=== PATIENT | male | born 1960 | race Two or more races ===

== ENCOUNTER 2025-02-22 06:40 | Day surgery (SDC) | payer MEDICAID, SELFPAY ==
--- NOTE | 2025-02-21 07:00 | EKG_ITS ---
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
[2025-02-21 10:42] VITALS: BMI 27.8
[2025-02-21 11:04] LABS: Collection Type, Urine Clean Catch; Squamous Epithelial Cell,Urine 0 /hpf (0-5)
[2025-02-21 12:16] LABS: Basophils # (Auto) 0.0 Thou/mm3 (0.0-0.2); Basophils % (Auto) 1 % (0-2.5); Eosinophils # (Auto) 0.1 Thou/mm3 (0.0-0.5); Eosinophils % (Auto) 2 % (0-10); Hematocrit 44.5 % (41.0-53.0); Hemoglobin 15.0 g/dL (13.5-16.0); Immature Granulocytes Auto 0.02 Thou/mm3 (0.00-0.00); Lymphocytes # (Auto) 2.1 Thou/mm3 (1.0-4.8); Lymphocytes % (Auto) 32 % (10-50); Mean Corpuscular HGB Conc 33.7 g/dl (31.0-37.0); Mean Corpuscular Hemoglobin 27.5 pg (25.0-35.0); Mean Corpuscular Volume 82 fL (80-100); Monocytes # (Auto) 0.7 Thou/mm3 (0.0-0.8); Monocytes % (Auto) 10 % (0-12); Neutrophils # (Auto) 3.6 Thou/mm3 (1.8-7.7); Neutrophils % (Auto) 55 % (37-80); Nucleated Red Blood Cell # 0.00 Thou/mm3 (0.00-0.00); Nucleated Red Blood Cell % 0 /100 WBC (0); Platelet Count 282 Thou/mm3 (140-440); RDW Standard Deviation 42.5 fL (35.1-43.9); Red Blood Count 5.45 Miln/mm3 (4.50-5.90); White Blood Count 6.6 Thou/mm3 (3.8-10.6)
--- NOTE | 2025-02-21 12:22 | ESHP_ITS ---
RE: IVAN WARD : 1960 DATE OF ADMISSION: 02/22/2025 HISTORY OF PRESENT ILLNESS: The patient is a 64-year-old male with elevated PSA of 5.3, nocturia x2, urinary flow is fair, sometimes slow. PREVIOUS SURGERY: Bilateral vasectomy. PAST MEDICAL HISTORY: The patient's serum creatinine is 1.0. PSA is 5.3. His hemoglobin A1c is 6.0. There is no history of diabetes mellitus. No history of hypertension. SOCIAL HISTORY: The patient has 5 children. HOME MEDICATIONS: None. ALLERGIES: NONE KNOWN. PHYSICAL EXAMINATION: HEENT: Normal. NECK: Supple. LUNGS: Clear. CARDIOVASCULAR: Heart sounds are normal. ABDOMEN: Soft. The patient has a small umbilical hernia. GENITOURINARY: Phallus is normal. Testes are down in the scrotum. RECTAL: Reveals moderately enlarged smooth prostate without any hard nodules. IMPRESSION: 1. Elevated PSA. 2. Prostatism. 3. Prostatic obstruction. PLAN: Cystoscopy, transrectal prostatic ultrasound with ultrasound-guided prostatic needle biopsy. Planned procedure risks and complications have been discussed with the patient. The patient has understood them and agreed to proceed. Thank you. DT: 11:58:36 TT: 12:20:00 Ref: [id number] - TID: [id number]
[2025-02-21 12:24] LABS: Bilirubin,Urine Negative (Negative); Blood,Urine Trace (Negative); Clarity,Urine Clear (Clear/Hazy); Color,Urine Lt-Yellow (Lt Yel-Yel); Glucose, Urine Negative (Negative); Ketones,Urine Negative (Negative); Leukocyte Esterase,Urine Negative (Negative); Nitrite,Urine Negative (Negative); PH,Urine 6.0 (5.0-7.0); Protein,Urine Negative (Neg - Trace); RBC,Urine 3 /hpf (0-3); Specific Gravity,Urine 1.015 (1.001-1.035); Urobilinogen,Urine Negative mg/dL (0.0-1.0); WBC,Urine < 1 /hpf (0-5)
[2025-02-21 12:28] LABS: Alanine Aminotransferase 17 U/L (10-49); Albumin, Serum 4.2 gm/dL (3.4-4.8); Albumin/Globulin Ratio 1.9 (1.2-2.2); Alkaline Phosphatase 80 U/L (46-116); Anion Gap 10 (7-16); Aspartate Amino Transferase 18 U/L (0-34); BUN/Creatinine Ratio 14 Ratio (12-20); Bilirubin,Total 0.6 mg/dL (0.3-1.2); Blood Urea Nitrogen 14 mg/dL (9-23); Calcium 9.1 mg/dL (8.3-10.6); Calcium (Corrected) 9.1 mg/dL (8.5-10.1); Carbon Dioxide 27.3 mMol/L (20.0-31.0); Chloride 105 mMol/L (98-107); Creatinine (Component) 1.0 mg/dL (0.6-1.3); Estimated Creatinine Clearance 72.9 mL/min (>60); Globulin 2.2 gm/dL (2.3-3.5); Glucose 88 mg/dL (74-106); Osmolality,Calculated 282 (275-295); Potassium 4.2 mMol/L (3.4-5.1); Sodium 142 mMol/L (136-145); Total Protein 6.4 gm/dL (5.7-8.2); eGFR > 60 See Note
--- NOTE | 2025-02-21 14:51 | SUR.PREOP ---
Cardiac records requested from Dr [place] and waiting for them.
[2025-02-22] VITALS (7 sets, daily range): BP systolic 95–134; BP diastolic 62–85; PULSE 62–76; RESP 12–15; TEMP 36.1–36.6; O2SAT 95–99; BMI 27.5
[2025-02-22] MEDS: RINGERS LACTATED 1000 ML 1,000 ML 20 ML IV (07:20)
--- NOTE | 2025-02-22 07:25 | CHAP ---
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
--- NOTE | 2025-02-22 08:30 | XR_ITS ---
Examination: Transrectal prostate sonography Date and time: February 22, 2025 0854 hours INDICATIONS: Prostate sonographic images for guidance for prostate biopsy is by physician today TECHNIQUE AND FINDINGS: Transrectal sonographic images prostate IMPRESSION: Transrectal sonographic images prostate for prostatic biopsies by physician
--- NOTE | 2025-02-22 09:10 | SUR.PHASEII ---
0910: Pt. AAOx4, vitals stable, breathing unlabored, no complaint of pain or nausea, no dressing in place, no active bleed noted, report received from Malik PAREDES and Jose MOON.
--- NOTE | 2025-02-22 09:47 | ESOP_ITS ---
RE: IVAN WARD : 1960 DATE OF OPERATION: 02/22/2025 PREOPERATIVE DIAGNOSES: Prostatism, prostatic obstruction, elevated PSA of 5.3. POSTOPERATIVE DIAGNOSES: Prostatism, prostatic obstruction, elevated PSA of 5.3. PROCEDURES PERFORMED: Cystoscopy and transrectal prostatic ultrasound with ultrasound-guided prostatic needle biopsy. ANESTHESIA: Monitored anesthesia by Dr. Lilly. INDICATION: The patient is a 64-year-old male with elevated PSA of 5.3. He has nocturia x2 with slowing urinary stream. Rectally, he has a moderately enlarged prostate without any hard nodules. He is now scheduled to have cystoscopy and transrectal prostatic ultrasound with ultrasound-guided prostatic needle biopsy. Planned procedure risks and complications have been discussed with the patient. The patient understood them and agreed to proceed. DESCRIPTION OF PROCEDURE: After the patient was brought to the operating table under adequate monitored anesthesia in dorsal lithotomy position, parts were prepped and draped in the usual fashion. Cystoscopy was then carried out in a standard fashion, which revealed adequate urethral meatus, normal-appearing urethra. Prostatic urethra is moderately enlarged with bilobed prostate with small median lobe. Residual urine 4 ounces yellow and clear and was sent for culture and sensitivity examination. There were no intravesical stones or tumors. Ureteral orifices were found to be normal in position and appearance. Scope was withdrawn. The urethra was dilated. The patient was then turned in the left lateral position. Transrectal prostatic ultrasound was carried out. Biopsies were obtained from both lobes using ultrasound guidance. Prostatic volume was measured at 63.1 cubic cm. The patient tolerated the entire procedure well and left the room in good condition. DT: 09:29:11 TT: 09:45:00 Ref: [id number] - TID: [id number]
[2025-02-22] MEDS: HYDROcodone/APAP 5/325 TABLET 1 TAB PO (09:53)
--- NOTE | 2025-02-22 10:03 | SUR.PHASEII ---
1003: Pt. AAOx4, vitals stable, breathing unlabored, no complaint of pain or nausea, no dressing in place, pt. able to void hematuria, pt. drank coffee, tolerated well. Gave discharge instructions to the pt. and his ride, both verbalized understanding and had no further questions. Pt. left with all personal belongings.
== END 2025-02-22 10:03 | disposition home or self-care (01) ==
PROVIDERS: Anesthesiology; PCP Internal Medicine Pulmonary Disease; Referring Provider Surgery; Visit Provider Surgery
PROC: 0TJB8ZZ Inspection of Bladder, Via Natural or Artificial Opening Endoscopic (ICD-10-PCS; CPT 52000; principal; 2025-02-22 08:30)
DX: N40.1 Benign prostatic hyperplasia with lower urinary tract symptoms (principal); N13.8 Other obstructive and reflux uropathy; R35.1 Nocturia; R39.198 Other difficulties with micturition; Z01.810 Encounter for preprocedural cardiovascular examination
CPT/HCPCS: 52281; 55700; 36415; 76942; 80053; 81001; 85025; 87086; 93005; A4217; A4649; J0694; J2250; J2704; J3010; J3490; J7120; A9270